=== PATIENT | female | born 1965 | race Caucasian/White ===

== ENCOUNTER → 2017-02-10 | Outpatient (CLI) | payer OTHER ==
[2017-02-10 11:01] LABS: ABSOLUTE EOSINOPHILS # (AUTO) 0.3 10^3/uL (0.0-0.6); ABSOLUTE LYMPHOCYTES (AUTO) 1.5 10^3/uL (0.5-4.7); ABSOLUTE MONOCYTES (AUTO) 0.3 10^3/uL (0.1-1.4); ABSOLUTE NEUT (AUTO) 3.9 10^3/uL (1.7-8.2); BASOPHILS % (AUTO) 0.5 % (0-2); EOSINOPHILS % (AUTO) 4.4 % (0-6); HEMATOCRIT 38.8 % (36.0-47.0); HEMOGLOBIN 12.8 g/dL (12.0-15.5); HGB HCT DIFFERENCE -0.4; LYMPHOCYTES % (AUTO) 25.1 % (13-45); MEAN CORPUSCULAR HEMOGLOBIN 28.6 pg (27.0-33.4); MEAN CORPUSCULAR HGB CONC 32.9 g/dL (32.0-36.0); MEAN CORPUSCULAR VOLUME 87 fl (80-97); MONOCYTES % (AUTO) 5.1 % (3-13); RED BLOOD COUNT 4.47 10^6/uL (3.72-5.28); RED CELL DISTRIBUTION WIDTH 15.9 % (11.5-14.0); SEGMENTED NEUTROPHILS % (AUTO) 64.9 % (42-78)
[2017-02-10 11:19] LABS: ALANINE AMINOTRANSFERASE 33 U/L (9-52); ALBUMIN 3.6 g/dL (3.5-5.0); ALKALINE PHOSPHATASE 117 U/L (38-126); ANION GAP 11 (5-19); ASPARTATE AMINO TRANSFERASE 23 U/L (14-36); BILIRUBIN,DIRECT 0.2 mg/dL (0.0-0.4); BILIRUBIN,TOTAL 0.6 mg/dL (0.2-1.3); BLOOD UREA NITROGEN 12 mg/dL (7-20); CALCIUM 9.1 mg/dL (8.4-10.2); CARBON DIOXIDE 28 mmol/L (22-30); CHLORIDE 106 mmol/L (98-107); CHOLESTEROL 212.36 mg/dL (0-200); Direct HDL 33 mg/dL (>40); GLUCOSE 124 mg/dL (75-110); POTASSIUM 4.3 mmol/L (3.6-5.0); SODIUM 145.2 mmol/L (137-145); TOTAL PROTEIN 7.2 g/dL (6.3-8.2); TRIGLYCERIDES 221 mg/dL (<150)
[2017-02-10 11:30] LABS: DIRECT LDL 136 mg/dL (<100)
[2017-02-10 11:31] LABS: VLDL CHOLESTEROL 44.2 mg/dL (10-31)
== END ==
LOC: CCC 10:10
DX: I10 Essential (primary) hypertension (principal); E11.9 Type 2 diabetes mellitus without complications
CPT/HCPCS: 36415; 80053; 80061; 83036; 84443; 85025; 86038; 86430

== ENCOUNTER → 2017-03-02 | Outpatient (CLI) | payer OTHER ==
--- NOTE | 2017-03-02 21:10 | XCELERA REPORT ---
[address] [address] Transthoracic Echocardiogram Report Name: RUBIO SEXTON Age: 51 yrs Gender: Female : 1965 Patient Status: Outpatient Patient Location: Study Date: 03/02/2017 11:12 AM Height: 67 in Weight: 324 lb BSA: 2.5 m2 Procedure: A complete two-dimensional transthoracic echocardiogram was performed (2D, M-mode, spectral and color flow Doppler). The study was technically adequate with some images being suboptimal in quality. Reason For Study: EDEMA R60.9 Ordering Physician: ALON TYSON Performed By: Jass Browning Interpretation Summary The left ventricular ejection fraction is normal. There is mild concentric left ventricular hypertrophy. LV diastolic function could not be adequately assessed. The left ventricle is grossly normal size. Wall motion cannot be accurately commented on, but no definite regional wall motion abnormalities noted. The right ventricle is mildly dilated. The right ventricular systolic function is normal. The right atrium is normal in size The left atrium is moderately dilated. There is a mild amount of mitral regurgitation There is no mitral valve stenosis. No aortic regurgitation is present. There is no aortic valve stenosis There is a mild amount of tricuspid regurgitation There is mild pulmonary hypertension by echo Best estimated right ventricular systolic pressure is elevated at 30- 40mmHg. There is no pericardial effusion. MMode/2D Measurements \T\ Calculations RVDd: 2.4 cm LVIDd: 5.7 cm FS: 40.8 % Ao root diam: 3.2 cm IVSd: 1.2 cm LVIDs: 3.4 cm EDV(Teich): 159.8 ml LVPWd: 1.1 cm ESV(Teich): 46.5 ml Ao root area: 8.0 cm2 EF(Teich): 70.9 % LA dimension: 4.7 cm Doppler Measurements \T\ Calculations MV E max philly: MV P1/2t max philly: Ao V2 max: LV V1 max P.6 cm/sec 69.1 cm/sec 141.6 cm/sec 5.7 mmHg MV A max philly: MV P1/2t: 59.0 msec Ao max PG: LV V1 max: 53.7 cm/sec 8.0 mmHg 119.4 cm/sec MV E/A: 1.2 MVA(P1/2t): 3.7 cm2 MV dec slope: 342.8 cm/sec2 PA V2 max: TR max philly: RAP systole: 110.2 cm/sec 264.9 cm/sec 10.0 mmHg PA max PG: TR max P.2 mmHg 4.9 mmHg RVSP(TR): 38.2 mmHg Left Ventricle The left ventricle is grossly normal size. There is mild concentric left ventricular hypertrophy. The left ventricular ejection fraction is normal. LV diastolic function could not be adequately assessed. Wall motion cannot be accurately commented on, but no definite regional wall motion abnormalities noted. Right Ventricle The right ventricle is mildly dilated. The right ventricle appears to be hypertrophied. The right ventricular systolic function is normal. Atria The right atrium is normal in size. The left atrium is moderately dilated. Interarterial septum not well visualized and not well dopplered. Cannot comment on ASD/PFO presence. Mitral Valve The mitral valve is grossly normal. There is no mitral valve stenosis. There is a mild amount of mitral regurgitation. Aortic Valve The aortic valve is grossly normal. There is no aortic valve stenosis. No aortic regurgitation is present. Tricuspid Valve The tricuspid valve is not well visualized, but is grossly normal. There is no tricuspid stenosis. There is a mild amount of tricuspid regurgitation. There is mild pulmonary hypertension by echo. Best estimated right ventricular systolic pressure is elevated at 30-40mmHg. Pulmonic Valve The pulmonic valve is not well visualized. Great Vessels The aortic root is not well visualized but is probably normal size. The inferior vena cava appeared normal and decreased > 50% with respiration (RAP 5-10 mmHg). Effusions There is no pericardial effusion. : ALON TYSON > Shorty Silva
== END ==
LOC: SP 11:03
PROVIDERS: ATTEND Family Medicine
DX: R60.9 Edema, unspecified (principal); E11.9 Type 2 diabetes mellitus without complications
CPT/HCPCS: 93306

== ENCOUNTER → 2017-04-27 | Outpatient (CLI) | payer OTHER ==
[~2017-04-27] MED LIST: ALBUTEROL SULFATE 0.083% NEB 2.5 MG/3 ML AMPUL NEB ONE
--- NOTE | 2017-04-27 16:27 | Pulmonary Function Test ---
Pulmonary Function Test Date of Procedure:: 04/27/17 INDICATION:: Dyspnea Referring Provider: Ramy Hermosillo MD Tour Escort: Aurora Medina GREETING CARD MAKER, MUSEUM EDUCATOR - Report Spirometry: FVC 2.56 L 73% postbronchodilator therapy 2.95 L 84% FEV1 1.93 L 67% postbronchodilator therapy 2.22 L 78% FEV1/FVC % 75 postbronchodilator therapy 75 predicted 83 FEF 25-75% 1.50 48% postbronchodilator therapy 1.78 L 57% Impression: Mild obstructive ventilatory defect with good response to bronchodilator therapy. Decrease FVC suggests a restrictive ventilatory defect. Restrictive defects cannot be diagnosed on the basis of spirometry alone.(Consider full pulmonary function test if clinically indicated).The decreased FVC may mask the degree of obstruction
== END ==
LOC: RT 13:24
PROVIDERS: ATTEND Family Medicine
DX: J44.9 Chronic obstructive pulmonary disease, unspecified (principal)
CPT/HCPCS: 94060

== ENCOUNTER → 2017-05-25 | Outpatient (CLI) | payer OTHER ==
--- NOTE | 2017-05-30 08:33 | PULMONARY FUNCTION TEST ---
DATE OF SERVICE: 05/25/2017 LUNG VOLUMES BY NITROGEN WASH OUT METHOD SHOW: TLC IS 69% OF PREDICTED THE DLCO IS 16.3, 49% OF PREDICTED. IMPRESSION: MODERATELY DECREASED TLC. DIFFUSING CAPACITY IS SEVERELY DECREASED. CC: YEIMI LANTIGUA MD > BRANDYD
== END ==
LOC: RT 13:29
PROVIDERS: ATTEND Family Medicine
DX: R06.00 Dyspnea, unspecified (principal)
CPT/HCPCS: 94727; 94729

== ENCOUNTER → 2017-06-22 | Outpatient (CLI) | payer OTHER ==
--- NOTE | 2017-06-24 15:10 | RADIOLOGY REPORT (SQ) ---
EXAM DESCRIPTION: KNEE RIGHT 4 VIEWS; CERV SP 4 OR 5 VIEWS; KNEE LEFT 4 VIEW; FOOT BILATERAL 3 VIEWS ; ANKLE BILATERAL 3 VIEWS MIN; CHEST PA/LAT COMPLETED DATE/TIME: 06/22/2017, 1431 hours REASON FOR STUDY: Restrictive lung disease, bilateral lower extremity pain COMPARISON: No previous imaging comparison TECHNIQUE: PA and lateral chest Cervical spine five views Bilateral knees four views Bilateral ankles three views Bilateral feet three views LIMITATIONS: None FINDINGS: Two-view chest: No acute infiltrates. No pleural effusions. No pneumothorax. Cardiac silhouette size, abel unremarkable. Mild degenerative disc changes lowers thoracic spine. Cervical spine five views: On the lateral view, the cervical spine is seen down to the mid C6 vertebral body. No prevertebral s oft tissue swelling, fracture, or malalignment. AP, oblique views demonstrate normal alignment at th e C5, C6, C7, and T1. No significant foraminal stenosis. Open mouth odontoid view unremarkable. Bilateral knees four views: Normal bone density. No fracture or malalignment. No right or left knee joint effusion. Mild media l compartment joint space narrowing bilaterally. Minimal medial compartment bony spurring bilaterall y. Bilateral ankles three views: Normal bone density. No right or left ankle fracture. No disruption of the ankle mortise. No lytic or blastic lesions. No high-grade joint space narrowing at the ankles or subtalar joints. Mild mac nt space narrowing and bony spurring at the talonavicular joints bilaterally. Bilateral feet three views: Normal bone density. No fracture or malalignment. No lytic or blastic lesions. Mild joint space na rrowing and bony spurring at the bilateral talonavicular joints. No plantar calcaneal spurs or soft tissue calcifications. IMPRESSION: Two-view chest: No acute findings. Cervical spine five views: No significant central or foraminal bony stenosis. No plain film evidenc e of significant disc disease. No acute findings. Bilateral knees four views: Bilateral medial compartment joint space narrowing and mild bony spurrin g. No acute findings. Bilateral ankles three views: No significant ankle joint space narrowing. No acute findings. Bilateral feet three views: Mild bilateral talonavicular joint space narrowing and bony spurring. N o fracture. No acute changes.
== END ==
LOC: RAD 14:08
DX: M25.50 Pain in unspecified joint (principal); M25.40 Effusion, unspecified joint
CPT/HCPCS: 71020; 72050

== ENCOUNTER → 2017-10-07 | Outpatient (CLI) | payer OTHER ==
[2017-10-07 19:05] LABS: ANION GAP 10 (5-19); BLOOD UREA NITROGEN 14 mg/dL (7-20); CALCIUM 9.3 mg/dL (8.4-10.2); CARBON DIOXIDE 29 mmol/L (22-30); CHLORIDE 103 mmol/L (98-107); CREATININE RESULT 0.71 mg/dL (0.52-1.25); GLUCOSE 95 mg/dL (75-110)
== END ==
LOC: OD 17:43
DX: R22.2 Localized swelling, mass and lump, trunk (principal)
CPT/HCPCS: 36415; 80048

== ENCOUNTER → 2017-10-12 | Outpatient (CLI) | payer OTHER ==
--- NOTE | 2017-10-12 13:01 | RADIOLOGY REPORT (SQ) ---
EXAM DESCRIPTION: CT ABD/PELVIS WITH IV ORAL COMPLETED DATE/TIME: 10/12/2017 12:20 pm REASON FOR STUDY: R22.2 LOCALIZED SWELLING, MASS AND LUMP, TRUNK K42.9 UMBILICAL HERNIA WITHO R22.2 LOCALIZED SWELLING, MASS AND LUMP, TRUNK K42.9 UMBILICAL HERNIA WITHOUT OBSTRUCTION OR GANGRENE COMPARISON: None. TECHNIQUE: CT scan of the abdomen and pelvis performed with intravenous and oral contrast using tio marsha scanning technique with dynamic intravenous contrast injection. Images reviewed with lung, soft t issue, and bone windows. Reconstructed coronal and sagittal MPR images reviewed. Delayed images for e valuation of the urinary system also acquired. All images stored on PACS. All CT scanners at this facility use dose modulation, iterative reconstruction, and/or weight based d osing when appropriate to reduce radiation dose to as low as reasonably achievable (ALARA). [facility]: Dose Right [facility]: CareDose [facility]: Dose Right [facility]: Teradose 4D [facility]: Corimmun CONTRAST TYPE AND DOSE: contrast/concentration: Isovue 370.00 mg/ml; Total Contrast Delivered: 100.0 ml; Total Saline Delivered: 72.0 ml RENAL FUNCTION: Creatinine 0.7 RADIATION DOSE: CT Rad equipment meets quality standard of care and radiation dose reduction techniq ues were employed. CTDIvol: 26.6 - 31.6 mGy. DLP: 3184 mGy-cm.. LIMITATIONS: None. FINDINGS: LOWER CHEST: Mild basilar motion artifact. No acute or suspicious findings. LIVER: Normal size. No masses. No dilated ducts. SPLEEN: Normal size. No focal lesions. PANCREAS: No masses. No significant calcifications. No adjacent inflammation or peripancreatic fluid collections. Pancreatic duct not dilated. GALLBLADDER: Potential minimal cholelithiasis. Otherwise normal. ADRENAL GLANDS: 2 cm right adrenal mass is low density, less than 10 Hounsfield units. Probable ronny evelia. Left adrenal normal. RIGHT KIDNEY AND URETER: No solid masses. No significant calcification. No hydronephrosis or hydroure ter. LEFT KIDNEY AND URETER: No solid masses. No significant calcification. No hydronephrosis or hydrouret er. AORTA AND VESSELS: No aneurysm. No dissection. Renal arteries, SMA, celiac without stenosis. RETROPERITONEUM: Subcentimeter scattered shotty retroperitoneal lymph nodes, none of which look [place] enlarged. BOWEL AND PERITONEAL CAVITY: No obstruction. No visualized masses. No free fluid. No inflammatory ch anges or thickening of bowel wall. APPENDIX: Normal. PELVIS: No significant masses. Normal bladder. No free fluid. ABDOMINAL WALL: Umbilical hernia containing appendix. Defect in the abdominal wall measures just ove r 3 cm. The predominantly fat containing hernia extends nearly 13 cm craniocaudally. No associated fluid or inflammatory changes. BONES: No significant or acute findings. OTHER: No other significant finding. IMPRESSION: 1. Predominantly fat containing ventral umbilical hernia. A portion of the appendix pr ojects into the hernia sac. 2. Other findings as above. No acute or suspicious abnormality. TECHNICAL DOCUMENTATION: JOB ID: [id number] Quality ID # [id number]: Final reports with documentation of one or more dose reduction techniques (e.g., Au tomated exposure control, adjustment of the mA and/or kV according to patient size, use of iterative reconstruction technique) 2010 [employer]- All Rights Reserved
== END ==
LOC: RAD 10:11
DX: K42.9 Umbilical hernia without obstruction or gangrene (principal); R22.2 Localized swelling, mass and lump, trunk
CPT/HCPCS: 74177

== ENCOUNTER → 2017-10-26 | Outpatient (CLI) | payer OTHER ==
--- NOTE | 2017-11-08 16:12 | WOMENS IMAGING REPORT ---
EXAM DESCRIPTION: BILAT SCREENING MAMMO W/CAD COMPLETED DATE/TIME: 10/26/2017 3:27 pm REASON FOR STUDY: ROUTINE SCREENING; Z12.31 Z12.31 ENCNTR SCREEN MAMMOGRAM FOR MALIGNANT NEOPLASM O F ELVIRA COMPARISON: 09/10/2016 and 07/07/2015. TECHNIQUE: Standard craniocaudal and mediolateral oblique views of each breast recorded using digita l acquisition. LIMITATIONS: None. FINDINGS: Findings present which are benign by mammographic criteria. No suspicious masses, calcifi cations or architectural distortion. Pertinent benign findings: Stable circumscribed masses in both breasts. Read with the assistance of CAD. .[facility] - R2 Cenova Version 1.3 .[facility] Imaging - R2 Cenova Version 1.3 .[facility] - R2 Cenova Version 2.4 .[facility] [place] R2 Cenova Version 2.4 .[facility] - R2 Broker Version 9.2 Benign mammographic findings may include one or more of the following: Smooth masses, popcorn/rim/co arse calcifications, asymmetries, post-procedure changes, and lesions with long-standing stability. IMPRESSION: BENIGN MAMMOGRAPHIC FINDINGS. BIRADS 2 BREAST DENSITY: a. The breasts are almost entirely fatty. BIRAD: 2 BENIGN FINDING(S) RECOMMENDATION: ROUTINE SCREENING COMMENT: The patient has been notified of the results by letter per SA requirements. Additional no tification policies are in place for contacting patient with suspicious or incomplete findings. Quality ID #225: The [employer] recommends an annual screening mammogram for women aged 40 years or over. This facility utilizes a reminder system to ensure that all patients receive reminder letters, and/or direct phone calls for appointments. This includes reminders for routine scr eening mammograms, diagnostic mammograms, or other Breast Imaging Interventions when appropriate. Th is patient will be placed in the appropriate reminder system. The [employer] (ACR) has developed recommendations for screening MRI of the breast s in certain patient populations, to be used in conjunction with mammography. Breast MRI surveillanc e may be appropriate for women with more than 20% lifetime risk of developing breast cancer as deter mined by genetic testing, significant family history of the disease, or history of mantle radiation f or Hodgkins Disease. ACR Practice Guidelines 2008. TECHNICAL DOCUMENTATION: FINDING NUMBER: (1) ASSESSMENT: (1) JOB ID: [id number] [employer]- All Rights Reserved
== END ==
LOC: WI 14:11
DX: Z12.31 Encounter for screening mammogram for malignant neoplasm of breast (principal)
CPT/HCPCS: 77067; G0202

== ENCOUNTER → 2019-02-24 | Outpatient (CLI) | payer OTHER ==
[2019-02-24 10:23] LABS: ABSOLUTE BASOPHILS # (AUTO) 0.1 10^3/uL (0.0-0.2); ABSOLUTE EOSINOPHILS # (AUTO) 0.8 10^3/uL (0.0-0.6); ABSOLUTE LYMPHOCYTES (AUTO) 2.1 10^3/uL (0.5-4.7); ABSOLUTE MONOCYTES (AUTO) 0.4 10^3/uL (0.1-1.4); ABSOLUTE NEUT (AUTO) 3.9 10^3/uL (1.7-8.2); BASOPHILS % (AUTO) 0.8 % (0-2); EOSINOPHILS % (AUTO) 10.7 % (0-6); HEMATOCRIT 44.6 % (36.0-47.0); HEMOGLOBIN 15.5 g/dL (12.0-15.5); LYMPHOCYTES % (AUTO) 28.7 % (13-45); MEAN CORPUSCULAR HEMOGLOBIN 32.5 pg (27.0-33.4); MEAN CORPUSCULAR HGB CONC 34.8 g/dL (32.0-36.0); MEAN CORPUSCULAR VOLUME 93 fl (80-97); MONOCYTES % (AUTO) 6.1 % (3-13); PLATELET COUNT 238 10^3/uL (150-450); RED BLOOD COUNT 4.78 10^6/uL (3.72-5.28); RED CELL DISTRIBUTION WIDTH 13.5 % (11.5-14.0); SEGMENTED NEUTROPHILS % (AUTO) 53.7 % (42-78); TOTAL CELLS COUNTED % (AUTO) 100 %; WHITE BLOOD COUNT 7.3 10^3/uL (4.0-10.5)
[2019-02-24 10:25] LABS: ALANINE AMINOTRANSFERASE 24 U/L (9-52); ALBUMIN 3.9 g/dL (3.5-5.0); ALKALINE PHOSPHATASE 105 U/L (38-126); ANION GAP 8 (5-19); ASPARTATE AMINO TRANSFERASE 19 U/L (14-36); BILIRUBIN,DIRECT 0.3 mg/dL (0.0-0.4); BILIRUBIN,TOTAL 0.4 mg/dL (0.2-1.3); BLOOD UREA NITROGEN 13 mg/dL (7-20); CALCIUM 9.9 mg/dL (8.4-10.2); CARBON DIOXIDE 29 mmol/L (22-30); CHLORIDE 104 mmol/L (98-107); CHOLESTEROL 236.66 mg/dL (0-200); GLUCOSE 98 mg/dL (75-110); POTASSIUM 4.4 mmol/L (3.6-5.0); SODIUM 141.2 mmol/L (137-145); TOTAL PROTEIN 7.5 g/dL (6.3-8.2); TRIGLYCERIDES 243 mg/dL (<150)
[2019-02-24 10:35] LABS: DIRECT LDL 172 mg/dL (<100)
[2019-02-24 10:36] LABS: VLDL CHOLESTEROL 48.6 mg/dL (10-31)
== END ==
LOC: CCC 09:23
DX: Z00.00 Encounter for general adult medical examination without abnormal findings (principal)
CPT/HCPCS: 36415; 80053; 80061; 83036; 84443; 85025; 86038

== ENCOUNTER → 2020-08-15 | Outpatient (CLI) | payer OTHER ==
[2020-08-15 10:03] LABS: ABSOLUTE BASOPHILS # (AUTO) 0.1 10^3/uL (0.0-0.2); ABSOLUTE EOSINOPHILS # (AUTO) 0.6 10^3/uL (0.0-0.6); ABSOLUTE LYMPHOCYTES (AUTO) 1.7 10^3/uL (0.5-4.7); ABSOLUTE MONOCYTES (AUTO) 0.4 10^3/uL (0.1-1.4); ABSOLUTE NEUT (AUTO) 3.7 10^3/uL (1.7-8.2); BASOPHILS % (AUTO) 1.2 % (0-2); EOSINOPHILS % (AUTO) 9.5 % (0-6); HEMATOCRIT 42.8 % (36.0-47.0); LYMPHOCYTES % (AUTO) 26.2 % (13-45); MEAN CORPUSCULAR HEMOGLOBIN 32.4 pg (27.0-33.4); MEAN CORPUSCULAR VOLUME 93 fl (80-97); MONOCYTES % (AUTO) 6.2 % (3-13); PLATELET COUNT 224 10^3/uL (150-450); RED BLOOD COUNT 4.63 10^6/uL (3.72-5.28); RED CELL DISTRIBUTION WIDTH 13.6 % (11.5-14.0); SEGMENTED NEUTROPHILS % (AUTO) 56.9 % (42-78); TOTAL CELLS COUNTED % (AUTO) 100 %; WHITE BLOOD COUNT 6.6 10^3/uL (4.0-10.5)
[2020-08-15 10:31] LABS: ALBUMIN 3.8 g/dL (3.5-5.0); ALKALINE PHOSPHATASE 128 U/L (38-126); ANION GAP 6 (5-19); ASPARTATE AMINO TRANSFERASE 25 U/L (14-36); BILIRUBIN,DIRECT 0.3 mg/dL (0.0-0.4); BILIRUBIN,TOTAL 0.6 mg/dL (0.2-1.3); BLOOD UREA NITROGEN 11 mg/dL (7-20); CALCIUM 9.6 mg/dL (8.4-10.2); CARBON DIOXIDE 30 mmol/L (22-30); CHLORIDE 105 mmol/L (98-107); CHOLESTEROL 162.53 mg/dL (0-200); GLUCOSE 139 mg/dL (75-110); POTASSIUM 4.8 mmol/L (3.6-5.0); TOTAL PROTEIN 7.2 g/dL (6.3-8.2); TRIGLYCERIDES 233 mg/dL (<150)
[2020-08-15 10:41] LABS: DIRECT LDL 98 mg/dL (<100)
[2020-08-15 10:44] LABS: ERYTHROCYTE SEDIMENTATION RATE 44 mm/hr (0-30)
[2020-08-15 10:49] LABS: VLDL CHOLESTEROL 46.6 mg/dL (10-31)
== END ==
LOC: CCC 09:08
DX: E11.8 Type 2 diabetes mellitus with unspecified complications (principal); M19.90 Unspecified osteoarthritis, unspecified site
CPT/HCPCS: 36415; 80053; 80061; 83036; 84443; 85025; 85652

== ENCOUNTER → 2020-08-15 | Outpatient (CLI) | payer OTHER ==
--- NOTE | 2020-08-15 12:46 | WOMENS IMAGING REPORT ---
EXAM DESCRIPTION: DAIJA JORGENSEN BILATERAL SCREEN IMAGES COMPLETED DATE/TIME: 08/15/2020 10:03 am REASON FOR STUDY: PINK Z12.31 Z12.31 ENCOUNTER FOR SCREENING MAMMOGRAM FOR MALIGNANT NEOPLASM Z12.31 ENCNTR SCREEN MAMMOGRAM FOR MALIGNANT NEOPLASM OF ELVIRA COMPARISON: 2017 EXAM PARAMETERS: Standard craniocaudal and mediolateral oblique views of each breast recorded using digital acquisition. Read with the assistance of CAD. .[facility] - R2 Care Transitions Manager Version 9.2 LIMITATIONS: None. FINDINGS: No suspicious masses, suspicious calcifications or architectural distortion. No areas of c oncern. IMPRESSION: NEGATIVE MAMMOGRAM. BIRADS 1 BREAST DENSITY: a. The breasts are almost entirely fatty. BIRAD: ASSESSMENT: 1 NEGATIVE RECOMMENDATION: ROUTINE SCREENING Please continue yearly bilateral screening mammography in August 2021 COMMENT: The patient has been notified of the results by letter per SA requirements. Additional no tification policies are in place for contacting patient with suspicious or incomplete findings. Quality ID #225: The [employer] recommends an annual screening mammogram for women aged 40 years or over. This facility utilizes a reminder system to ensure that all patients receive reminder letters, and/or direct phone calls for appointments. This includes reminders for routine scr eening mammograms, diagnostic mammograms, or other Breast Imaging Interventions when appropriate. Th is patient will be placed in the appropriate reminder system. TECHNICAL DOCUMENTATION: FINDING NUMBER: (1) ASSESSMENT: (1) JOB ID: [id number] 2010 [employer]- All Rights Reserved Reading location - IP/workstation name: [email or web address]
== END ==
LOC: WI 09:36
PROVIDERS: ATTEND Internal Medicine
DX: Z12.31 Encounter for screening mammogram for malignant neoplasm of breast (principal)
CPT/HCPCS: 77067

== ENCOUNTER → 2020-09-03 | Outpatient (CLI) | payer OTHER ==
--- NOTE | 2020-09-03 11:28 | RADIOLOGY REPORT (SQ) ---
EXAM DESCRIPTION: MRI LUMBAR SPINE WITHOUT IMAGES COMPLETED DATE/TIME: 09/03/2020 11:03 am REASON FOR STUDY: CHRONIC LOW BACK PAIN M54.5 LOW BACK PAIN COMPARISON: None. TECHNIQUE: Sagittal and Axial imaging includes T1, T2, STIR and gradient echo sequences. Coronal T2/ HASTE imaging. LIMITATIONS: None. FINDINGS: VISUALIZED UPPER ABDOMEN: Limited evaluation. No acute or suspicious findings suggested. SEGMENTATION: No transitional anatomy. The lowest well-developed disc space is labeled L5-S1. ALIGNMENT: Anatomic. VERTEBRAE: Intact. BONE MARROW: Marrow edema at T12-L1. DISC SIGNAL: Mild multilevel desiccation. Changes are most prominent in the lower thoracic spine and at L1-L2 and L3-L4. POSTERIOR ELEMENTS: Multilevel facet arthropathy most marked at the lower 3 disc space levels. HARDWARE: None in the spine. CORD AND CONUS: Normal in size and signal intensity. Conus at the appropriate level. SOFT TISSUES: No aortic aneurysm seen. No bulky retroperitoneal adenopathy or mass. No paraspinal mas s or fluid. L1-L2: No significant spinal stenosis or exit foraminal stenosis. L2-L3: No significant spinal stenosis or exit foraminal stenosis. L3-L4: No significant spinal stenosis or exit foraminal stenosis. L4-L5: No significant spinal stenosis or exit foraminal stenosis. L5-S1: No significant spinal stenosis or exit foraminal stenosis. LOWER THORACIC: Incompletely imaged. No stenosis seen. SACRUM: Visualized upper sacrum intact. OTHER: No other significant findings. IMPRESSION: Endplate edema at T12-L1 with associated disc degenerative disease. Mild multilevel jeannette iccation. No high-grade central stenosis or foraminal narrowing. TECHNICAL DOCUMENTATION: JOB ID: [id number] 2010 [employer]- All Rights Reserved Reading location - IP/workstation name: [email or web address]
== END ==
LOC: RAD 10:14
PROVIDERS: ATTEND Internal Medicine
DX: M51.35 Other intervertebral disc degeneration, thoracolumbar region (principal); M54.5 Low back pain; G57.13 Meralgia paresthetica, bilateral lower limbs
CPT/HCPCS: 72148

== ENCOUNTER → 2020-09-12 | Outpatient (CLI) | payer OTHER ==
--- NOTE | 2020-09-12 10:31 | RADIOLOGY REPORT (SQ) ---
EXAM DESCRIPTION: ANKLE BILATERAL AP/LAT IMAGES COMPLETED DATE/TIME: 09/12/2020 9:03 am REASON FOR STUDY: PRIMARY GENERALIZED (OSTEO)ARTHRITIS M15.0 PRIMARY GENERALIZED (OSTEO)ARTHRITIS COMPARISON: 06/22/2017 NUMBER OF VIEWS: Three views. TECHNIQUE: AP, lateral, and oblique without weight bearing radiographic images acquired of the right and left ankle. LIMITATIONS: None. FINDINGS: MINERALIZATION: Normal. BONES: No acute fracture or dislocation. No worrisome bone lesions. No significant osteophytes. JOINTS: Prominent dorsal osteophytes at the talonavicular joints bilaterally right greater than left. This has progressed since prior study. SOFT TISSUES: No soft tissue swelling. No foreign body. OTHER: No other significant finding. IMPRESSION: Prominent dorsal osteophytes at the talonavicular joints bilaterally right greater than left. No other significant findings. TECHNICAL DOCUMENTATION: JOB ID: [id number] 2010 [employer]- All Rights Reserved Reading location - IP/workstation name: [email or web address]
[2020-09-12 10:33] LABS: C-REACTIVE PROTEIN 15.3 mg/L (<10.0)
--- NOTE | 2020-09-12 10:33 | RADIOLOGY REPORT (SQ) ---
EXAM DESCRIPTION: FOOT BILATERAL 2 VIEWS IMAGES COMPLETED DATE/TIME: 09/12/2020 9:03 am REASON FOR STUDY: PRIMARY GENERALIZED (OSTEO)ARTHRITIS M15.0 PRIMARY GENERALIZED (OSTEO)ARTHRITIS COMPARISON: None. NUMBER OF VIEWS: Three views. TECHNIQUE: AP, lateral and oblique radiographic images acquired of the right and left foot. LIMITATIONS: None. FINDINGS: MINERALIZATION: Normal. BONES: No acute fracture or dislocation. No worrisome bone lesions. JOINTS: Prominent dorsal osteophytes at the talonavicular joints bilaterally right greater than left. SOFT TISSUES: No soft tissue swelling. No foreign body. OTHER: No other significant finding. IMPRESSION: Degenerative changes at the talonavicular joint right greater than left. No other signi ficant findings. TECHNICAL DOCUMENTATION: JOB ID: [id number] 2010 [employer]- All Rights Reserved Reading location - IP/workstation name: [email or web address]
--- NOTE | 2020-09-12 10:40 | RADIOLOGY REPORT (SQ) ---
EXAM DESCRIPTION: HAND BILATERAL 2 VIEWS IMAGES COMPLETED DATE/TIME: 09/12/2020 9:03 am REASON FOR STUDY: PRIMARY GENERALIZED (OSTEO)ARTHRITIS M15.0 PRIMARY GENERALIZED (OSTEO)ARTHRITIS COMPARISON: . . . . . . . . . . . . . . . . . . . . . . . . . . . . . . . . . . . . . . . . . . . . . . . . . . . . . . . . . . . . . . . . . . . . . . . . . . . . . . EXAM PARAMETERS: NUMBER OF VIEWS: Three views right hand. Three views left hand. TECHNIQUE: AP, lateral and oblique radiographic images acquired of bilateral hands. LIMITATIONS: None. FINDINGS: RIGHT HAND: MINERALIZATION: Questionable early juxta-articular osteopenia. BONES: No acute fracture or dislocation. No worrisome bone lesions. No significant osteophytes. JOINTS: No erosions. No sergey-articular osteopenia. No chondrocalcinosis. SOFT TISSUES: No swelling. No calcifications. OTHER: No other significant finding. LEFT HAND: MINERALIZATION: Questionable early juxta-articular osteopenia. BONES: No acute fracture or dislocation. No worrisome bone lesions. No significant osteophytes. JOINTS: No erosions. No sergey-articular osteopenia. No chondrocalcinosis. SOFT TISSUES: No swelling. No calcifications. OTHER: No other significant finding. IMPRESSION: No significant joint space narrowing. Questionable early juxta-articular osteopenia sabra aterally. This can be seen with rheumatoid arthritis. TECHNICAL DOCUMENTATION: JOB ID: [id number] 2010 [employer]- All Rights Reserved Reading location - IP/workstation name: [email or web address]
== END ==
LOC: CCC 08:19
PROVIDERS: ATTEND Internal Medicine
DX: M15.0 Primary generalized (osteo)arthritis (principal)
CPT/HCPCS: 36415; 82306; 86140; 86200; 86431

== ENCOUNTER → 2020-11-12 | Outpatient (CLI) | payer OTHER ==
--- NOTE | 2020-11-12 11:55 | WOMENS IMAGING REPORT ---
EXAM DESCRIPTION: BONE DENSITY HIP/SPINE IMAGES COMPLETED DATE/TIME: 11/12/2020 10:44 am REASON FOR STUDY: M89.9 DISORDER OF BONE, UNSPECIFIED M89.9 DISORDER OF BONE, UNSPECIFIED COMPARISON: None. TECHNIQUE: Dual-Energy X-ray Absorptiometry (DEXA) of the AP Spine and Hip. LIMITATIONS: None. FINDINGS: LUMBAR SPINE: The bone mineral density (BMD) measured from L2 -L4 in the AP projection correlates with a T-score of -1.0, which is normal as defined by the World Health Organization. BMD Change vs Baseline: N/A HIP: The bone mineral density (BMD) measured in the left hip correlates with a T-score of -1.4, which is o steopenia as defined by the World Health Organization. BMD Change vs Baseline: N/A 10 year Fracture Risk Assessment: Major Osteoporotic Fracture: Not available. Hip Fracture: Not available. IMPRESSION: 1. LUMBAR SPINE WHO CLASSIFICATION: NORMAL. 2. HIP WHO CLASSIFICATION: OSTEOPENIA. OVERALL ASSESSMENT: WHO CLASSIFICATION: OSTEOPENIA. COMMENT: The World Health Organization defines low BMD as follows: T-score: Normal: At or above -1.0 Osteopenia: Between -1.0 and -2.5 Osteoporosis: At or below -2.5 without fractures Established osteoporosis: At or below -2.5 with fractures In general, you may wish to consider: Diagnosis Treatment Follow-up DEXA Normal BMD Prevention 2-3 years Osteopenia Prevention/Therapy 1-2 years Osteoporosis Therapy Yearly TECHNICAL DOCUMENTATION: JOB ID: [id number] 2010 [employer]- All Rights Reserved Reading location - IP/workstation name: [email or web address]
== END ==
LOC: WI 10:01
PROVIDERS: ATTEND Internal Medicine
DX: M85.842 Other specified disorders of bone density and structure, left hand (principal); M85.841 Other specified disorders of bone density and structure, right hand; M85.88 Other specified disorders of bone density and structure, other site
CPT/HCPCS: 77080